=== PATIENT | male | born 1930 | race Native Hawaiian/Other Pacific Islander ===

== ENCOUNTER 2017-04-23 13:40 | Inpatient (IN) | payer OTHER ==
[~2017-04-23] VITALS: Ht 181.6 cm; Wt 61.0 kg
[2017-04-23 15:17] LABS: Basophils # (auto) 0.2 uL; Basophils % (auto) 1.2 % (0.0-2.0); Eosinophils # (auto) 0.4 uL; Eosinophils % (auto) 2.1 % (0.0-7.0); Hematocrit 25.8 % (41.0-53.0); Hemoglobin 8.7 g/dL (13.5-17.5); Lymphocytes # (auto) 2.5 uL; Lymphocytes % (auto) 12.8 % (10.0-50.0); Mean Corpuscular Hemoglobin 30.8 pg (28.0-32.0); Mean Corpuscular Hgb Conc. 33.6 g/dL (32.0-36.0); Mean Corpuscular Volume 91.8 fL (80.0-100.0); Mean Platelet Volume 7.8 fL (6.9-10.8); Monocytes # (auto) 1.5 uL; Monocytes % (auto) 7.3 % (0.0-12.0); Neutrophils # (auto) 15.2 uL; Neutrophils % (auto) 76.6 % (37.0-80.0); Nucleated Red Blood Cells % 0.5 %; Platelet Count (auto) 244 10^3/uL (140-450); Red Cell Distribution Width 16.2 % (11.8-14.3); White Blood Cell 19.8 10^3/uL (4.4-10.8)
[2017-04-23] MEDS ORDERED: SODIUM CHLORIDE 0.9% 1,000 ML IV ONE (15:24)
[2017-04-23 15:37] LABS: Albumin 1.7 g/dL (3.4-5.0); Bilirubin, Total 0.5 mg/dL (0.2-1.0); Calcium 7.2 mg/dL (8.5-10.1); Magnesium 2.1 mg/dL (1.6-2.6); Potassium 3.2 mmol/L (3.5-5.1); Total Protein 5.6 g/dL (6.4-8.2)
[2017-04-23 15:52] LABS: INR 1.05 (0.9-1.15); Prothrombin Time 11.4 sec (9.37-12.3)
[2017-04-23 16:19] LABS: Urine RBC None Seen /hpf (0 - 3)
[2017-04-23 16:32] LABS: Urine Bilirubin Negative (Negative); Urine Blood Negative /uL (Negative); Urine Color Yellow (Yellow); Urine Glucose 4+ mg/dL (Normal); Urine Ketone Negative (Negative); Urine Nitrite Negative (Negative); Urine Squamous Epithelial Cell FEW /hpf (<5); Urine Urobilinogen Normal (Negative)
[2017-04-23] MEDS ORDERED: POTASSIUM CHL 10% (20 MEQ/15ML) 15ml ORAL SOLN PO ONE (17:30)
[2017-04-23] MEDS ORDERED: PIPERACILLIN-TAZO 4.5GM 50 ML IV ONE (17:30)
[2017-04-23] MEDS ORDERED: InsuLIN REG 1unit/0.01ml Soln (100units/ml) IV ONE (17:30)
[2017-04-23] MEDS ORDERED: LIDOCAINE 1% HCL (LOCAL ANESTH.) INJ 20ML MDV ID ONE (18:15)
[2017-04-23] MEDS ORDERED: CARB25TA3 PO (18:31)
[2017-04-23] MEDS ORDERED: BUDE2SUS3 IN (18:31)
[2017-04-23] MEDS ORDERED: CARBIDOPA W LEVODOPA 25/100mg TABLET PO ONE (21:15)
[2017-04-23] MEDS ORDERED: ONDANSETRON HCL 4 MG/2 ML VIAL IV PRN (22:00)
[2017-04-23] MEDS ORDERED: ALBUMIN 5% 250 ML IV ONE (22:00)
[2017-04-23] MEDS ORDERED: MORPHINE SULF INJ 2 MG/ML SYRINGE 1ML IV PRN (22:00)
[2017-04-23] MEDS ORDERED: HYDROcodone-ACET 5/325MG TAB PO PRN (22:00)
[2017-04-23] MEDS ORDERED: NITROGLYCERIN 0.4 MG SL TAB SL PRN (22:00)
[2017-04-23] MEDS ORDERED: VANCOMYCIN PER PHARMACY 0 MG IV SCH (22:00)
[2017-04-23] MEDS ORDERED: DEXTROSE (50%) 50ML SYRG IV PRN (22:00)
[2017-04-23] MEDS ORDERED: VANCOMYCIN 1GM/250ML 250 ML IV ONE (22:15)
[2017-04-23] MEDS: PANTOPRAZOLE 40 MG/10 ML VIAL IV SCH (23:03)
[2017-04-23 23:07] LABS: Hematocrit 23.6 % (41.0-53.0); Hemoglobin 7.9 g/dL (13.5-17.5)
[2017-04-24] VITALS (10 sets, daily range): BP systolic 95–113; BP diastolic 51–66
[2017-04-24] MEDS ORDERED: PIPERACILLIN-TAZOB 3.375GM 50 ML IV SCH
[2017-04-24] MEDS: ACCU-CHEK COMFORT CURVE STRIP VI SCH ×4 (01:18→17:29)
[2017-04-24] MEDS: SODIUM CHLOR 0.9% PF (SALINE LOCK) 10ML VIAL IV SCH ×3 (01:19→21:52)
[2017-04-24] MEDS: InsuLIN REG 1unit/0.01ml Soln (100units/ml) SC SCH ×4 (01:22→17:28)
[2017-04-24] MEDS: SODIUM CHLORIDE 0.9% 1,000 ML IV SCH ×2 (02:13→11:23)
[2017-04-24] MEDS: CARBIDOPA W LEVODOPA 25/100mg TABLET PO SCH ×3 (06:00→17:32)
[2017-04-24] MEDS: PIPERACILLIN-TAZOB 3.375GM 50 ML IV SCH ×3 (07:53→20:04)
[2017-04-24] MEDS: PANTOPRAZOLE 40 MG/10 ML VIAL IV SCH ×2 (09:47→21:51)
[2017-04-24 09:50] LABS: Hematocrit 27.2 % (41.0-53.0); Hemoglobin 9.1 g/dL (13.5-17.5); Mean Corpuscular Hemoglobin 30.2 pg (28.0-32.0); Mean Corpuscular Hgb Conc. 33.6 g/dL (32.0-36.0); Mean Corpuscular Volume 89.9 fL (80.0-100.0); Mean Platelet Volume 7.5 fL (6.9-10.8); Platelet Count (auto) 207 10^3/uL (140-450); Red Cell Distribution Width 15.1 % (11.8-14.3)
[2017-04-24 10:01] LABS: Metamyelocytes % 0; Myelocytes % 0; Promyelocytes % 0; Reactive Lymphocytes 0
[2017-04-24 10:14] LABS: Albumin 1.8 g/dL (3.4-5.0); BUN/Creatinine Ratio 23.3; Bilirubin, Total 0.8 mg/dL (0.2-1.0); Calcium 7.3 mg/dL (8.5-10.1); Potassium 3.1 mmol/L (3.5-5.1); Total Protein 5.4 g/dL (6.4-8.2)
[2017-04-24 10:50] LABS: Platelet Estimate Adequate; RBC Morphology Normal
[2017-04-24] MEDS ORDERED: POTASSIUM CHL 20MEQ/50ML 50 ML IV ONE (17:30)
[2017-04-24] MEDS ORDERED: LISI-275 PO (23:10)
[2017-04-25] MEDS: VANCOMYCIN 1GM/250ML 250 ML IV SCH (00:07)
[2017-04-25] MEDS: ACCU-CHEK COMFORT CURVE STRIP VI SCH ×4 (00:09→18:15)
[2017-04-25] MEDS: CARBIDOPA W LEVODOPA 25/100mg TABLET PO SCH ×4 (00:14→18:10)
[2017-04-25] MEDS: InsuLIN REG 1unit/0.01ml Soln (100units/ml) SC SCH ×4 (00:14→18:15)
[2017-04-25] MEDS: SODIUM CHLORIDE 0.9% 1,000 ML IV SCH ×2 (00:40→14:10)
[2017-04-25] MEDS: PIPERACILLIN-TAZOB 3.375GM 50 ML IV SCH ×4 (02:09→21:36)
[2017-04-25 05:00] VITALS: BP 121/69
[2017-04-25 06:11] LABS: Hematocrit 24.5 % (41.0-53.0); Hemoglobin 8.4 g/dL (13.5-17.5); Mean Platelet Volume 7.4 fL (6.9-10.8); Platelet Count (auto) 192 10^3/uL (140-450); Red Cell Distribution Width 15.5 % (11.8-14.3); White Blood Cell 15.3 10^3/uL (4.4-10.8)
[2017-04-25 06:15] LABS: Metamyelocytes % 0; Myelocytes % 0; Promyelocytes % 0; Reactive Lymphocytes 0
[2017-04-25 06:32] LABS: Albumin 1.6 g/dL (3.4-5.0); BUN/Creatinine Ratio 22.1; Bilirubin, Total 0.7 mg/dL (0.2-1.0); Calcium 7.1 mg/dL (8.5-10.1); Potassium 3.2 mmol/L (3.5-5.1); Total Protein 5.1 g/dL (6.4-8.2)
[2017-04-25 06:54] LABS: Anisocytosis Slight; Hypersegmented Neutrophils Present
[2017-04-25 06:55] LABS: Large Platelets FEW; Ovalocytes FEW; Platelet Estimate Adequa
[2017-04-25 08:53] VITALS: BP 123/57
[2017-04-25] MEDS: PANTOPRAZOLE 40 MG/10 ML VIAL IV SCH ×2 (10:00→21:36)
[2017-04-25] MEDS: SODIUM CHLOR 0.9% PF (SALINE LOCK) 10ML VIAL IV SCH ×2 (10:14→21:36)
[2017-04-25 13:07] VITALS: BP 110/54
[2017-04-25] MEDS: D5W/SOD CHL 0.45%/KCL 20MEQ 1,000 ML IV SCH (16:54)
[2017-04-25 17:46] VITALS: BP 101/56
[2017-04-25 22:43] VITALS: BP 112/55
[2017-04-26] MEDS: CARBIDOPA W LEVODOPA 25/100mg TABLET PO SCH ×3 (00:12→15:00)
[2017-04-26] MEDS: VANCOMYCIN 1GM/250ML 250 ML IV SCH (00:13)
[2017-04-26] MEDS: ACCU-CHEK COMFORT CURVE STRIP VI SCH ×4 (00:13→18:16)
[2017-04-26 05:07] VITALS: BP 127/69
[2017-04-26] MEDS: D5W/SOD CHL 0.45%/KCL 20MEQ 1,000 ML IV SCH ×2 (05:13→17:10)
[2017-04-26] MEDS: PIPERACILLIN-TAZOB 3.375GM 50 ML IV SCH ×5 (05:13→17:07)
[2017-04-26 05:24] LABS: Basophils # (auto) 0.1 uL; Eosinophils # (auto) 0.4 uL; Monocytes # (auto) 1.2 uL
[2017-04-26 05:26] LABS: Basophils % (auto) 0.5 % (0.0-2.0); Eosinophils % (auto) 2.4 % (0.0-7.0); Hematocrit 22.6 % (41.0-53.0); Hemoglobin 7.6 g/dL (13.5-17.5); Lymphocytes # (auto) 2.5 uL; Mean Corpuscular Hgb Conc. 33.7 g/dL (32.0-36.0); Mean Platelet Volume 7.5 fL (6.9-10.8); Monocytes % (auto) 7.1 % (0.0-12.0); Neutrophils # (auto) 12.6 uL; Nucleated Red Blood Cells % 0.2 %; Platelet Count (auto) 199 10^3/uL (140-450); White Blood Cell 16.8 10^3/uL (4.4-10.8)
[2017-04-26 05:55] LABS: Albumin 1.5 g/dL (3.4-5.0); BUN/Creatinine Ratio 21.2; Bilirubin, Total 0.6 mg/dL (0.2-1.0); Calcium 7.3 mg/dL (8.5-10.1); Potassium 3.4 mmol/L (3.5-5.1); Total Protein 4.9 g/dL (6.4-8.2)
[2017-04-26] MEDS: InsuLIN REG 1unit/0.01ml Soln (100units/ml) SC SCH ×4 (05:59→18:16)
[2017-04-26] MEDS ORDERED: LIDOCAINE VISCOUS 2% 15ML UD ONE (08:33)
[2017-04-26] MEDS ORDERED: SODIUM CHLORIDE LOCK 10 ML ONE (08:33)
[2017-04-26] MEDS ORDERED: fentaNYL CITRATE 100 MCG/2 ML VL ONE (08:33)
[2017-04-26] MEDS ORDERED: MIDAZOLAM HCL 5 MG/ML-1ML VIAL ONE (08:34)
[2017-04-26] MEDS ORDERED: diphenhdrAMINE HCL 50 MG/1 ML VL ONE (08:34)
[2017-04-26 08:53] VITALS: BP 117/61
[2017-04-26] MEDS: SODIUM CHLOR 0.9% PF (SALINE LOCK) 10ML VIAL IV SCH ×2 (10:00→22:36)
[2017-04-26 10:45] VITALS: BP 106/51
[2017-04-26] MEDS: PANTOPRAZOLE 40 MG/10 ML VIAL IV SCH ×2 (15:00→22:35)
[2017-04-26 17:00] VITALS: BP 111/65
[2017-04-26 17:51] LABS: Hematocrit 24.3 % (41.0-53.0)
[2017-04-26 17:58] LABS: Hemoglobin 8.2 g/dL (13.5-17.5)
[2017-04-26 23:07] VITALS: BP 113/54
[2017-04-27] VITALS (12 sets, daily range): BP systolic 99–127; BP diastolic 38–91
[2017-04-27] MEDS ORDERED: VANCOMYCIN 1GM/250ML 250 ML IV ONE (00:30)
[2017-04-27] MEDS: VANCOMYCIN 1GM/250ML 250 ML IV SCH (00:38)
[2017-04-27] MEDS: ACCU-CHEK COMFORT CURVE STRIP VI SCH ×3 (06:00→18:00)
[2017-04-27] MEDS: InsuLIN REG 1unit/0.01ml Soln (100units/ml) SC SCH ×5 (06:00→18:00)
[2017-04-27] MEDS: CARBIDOPA W LEVODOPA 25/100mg TABLET PO SCH ×4 (06:00→17:36)
[2017-04-27] MEDS: D5W/SOD CHL 0.45%/KCL 20MEQ 1,000 ML IV SCH ×2 (06:30→14:30)
[2017-04-27 06:32] LABS: Basophils # (auto) 0.1 uL; Eosinophils # (auto) 0.3 uL; Hemoglobin 7.1 g/dL (13.5-17.5); Lymphocytes % (auto) 19.4 % (10.0-50.0); Nucleated Red Blood Cells % 0.1 %; Platelet Count (auto) 174 10^3/uL (140-450)
[2017-04-27 06:34] LABS: Basophils % (auto) 0.7 % (0.0-2.0); Eosinophils % (auto) 2.2 % (0.0-7.0); Lymphocytes # (auto) 2.6 uL; Mean Corpuscular Hemoglobin 31.4 pg (28.0-32.0); Mean Corpuscular Hgb Conc. 33.7 g/dL (32.0-36.0); Mean Corpuscular Volume 93.2 fL (80.0-100.0); Monocytes # (auto) 0.8 uL; Monocytes % (auto) 5.8 % (0.0-12.0); Neutrophils # (auto) 9.5 uL; Neutrophils % (auto) 71.9 % (37.0-80.0); Red Cell Distribution Width 15.6 % (11.8-14.3); White Blood Cell 13.2 10^3/uL (4.4-10.8)
[2017-04-27 06:44] LABS: Potassium 3.5 mmol/L (3.5-5.1)
[2017-04-27 06:52] LABS: BUN/Creatinine Ratio 26.7; Calcium 7.2 mg/dL (8.5-10.1)
[2017-04-27] MEDS: PIPERACILLIN-TAZOB 3.375GM 50 ML IV SCH ×3 (08:00→22:44)
[2017-04-27] MEDS: SODIUM CHLOR 0.9% PF (SALINE LOCK) 10ML VIAL IV SCH ×2 (10:00→22:00)
[2017-04-27] MEDS: PANTOPRAZOLE 40 MG/10 ML VIAL IV SCH ×2 (10:35→22:44)
[2017-04-27] MEDS ORDERED: DEXTROSE (50%) 50ML SYRG IV PRN (12:15)
[2017-04-27] MEDS ORDERED: FUROSEMIDE 20 MG/2 ML VIAL IV ONE (12:15)
[2017-04-27] MEDS ORDERED: GOLYTELY 4L KIT PO ONE (14:00)
[2017-04-27] MEDS ORDERED: VANCOMYCIN 1GM/250ML 250 ML IV SCH (17:00)
[2017-04-27] MEDS: ACETAMINOPHEN 325 MG TAB PO PRN (21:28)
[2017-04-27] MEDS ORDERED: LORazepam 2MG/ML-1ML VIAL IV PRN (21:45)
[2017-04-27] MEDS ORDERED: ACETAMINOPHEN 650 mg PER 20 mL UD GT PRN (21:45)
[2017-04-27] MEDS ORDERED: SODIUM CHLORIDE 0.9% 500 ML IV ONE (23:00)
[2017-04-27 23:39] LABS: Allen Test Yes; Base Excess -5.5 mmol/L (-2.0-2.0); Blood 02Sat 98.5 % (96-100); Blood COHb 0.3 % (0.5-1.5); Blood MetHb 0.3 % (0.0-1.5); HCO3 17.1 mmol/L (22-26.0); HHb 1.5 % (0.0-5.0); MODE MASK - BIPAP; O2Hb 97.9 % (94.0-97.0); PCO2 24.5 mmHg (35.0-45.0); PCO2(T) 25.6 mmHg (35.0-45.0); PO2 178.6 mmHg (80.0-100.0); PO2(T) 184.1 mmHg (80.0-100.0); Room 0275T; Sample Type Arterial; pH 7.462 (7.350-7.450)
[2017-04-28] VITALS (14 sets, daily range): BP systolic 95–143; BP diastolic 38–84
[2017-04-28 00:10] LABS: Allen Test Yes; Base Excess -5.5 mmol/L (-2.0-2.0); Blood 02Sat 98.2 % (96-100); Blood COHb 0.3 % (0.5-1.5); Blood MetHb 0.7 % (0.0-1.5); HCO3 17.9 mmol/L (22-26.0); HHb 1.8 % (0.0-5.0); MODE MASK - BIPAP; O2Hb 97.2 % (94.0-97.0); PCO2 27.6 mmHg (35.0-45.0); PCO2(T) 27.6 mmHg (35.0-45.0); PO2 149.9 mmHg (80.0-100.0); PO2(T) 149.9 mmHg (80.0-100.0); Room 0262D; Sample Type Arterial
[2017-04-28] MEDS: ACCU-CHEK COMFORT CURVE STRIP VI SCH ×4 (00:38→17:27)
[2017-04-28] MEDS: InsuLIN REG 1unit/0.01ml Soln (100units/ml) SC SCH ×4 (01:09→18:17)
[2017-04-28] MEDS: PIPERACILLIN-TAZOB 3.375GM 50 ML IV SCH ×4 (02:27→21:22)
[2017-04-28] MEDS: ACETAMINOPHEN 325 MG TAB PO PRN (03:06)
[2017-04-28 05:20] LABS: Basophils # (auto) 0.1 uL; Basophils % (auto) 0.3 % (0.0-2.0); Eosinophils # (auto) 0 uL; Hemoglobin 7.6 g/dL (13.5-17.5); Monocytes # (auto) 0.7 uL; Neutrophils # (auto) 21.8 uL
[2017-04-28 05:22] LABS: Hematocrit 22.7 % (41.0-53.0); Lymphocytes # (auto) 1.7 uL; Lymphocytes % (auto) 7.1 % (10.0-50.0); Mean Corpuscular Hemoglobin 31.3 pg (28.0-32.0); Mean Corpuscular Hgb Conc. 33.4 g/dL (32.0-36.0); Mean Corpuscular Volume 93.7 fL (80.0-100.0); Mean Platelet Volume 8.2 fL (6.9-10.8); Monocytes % (auto) 2.8 % (0.0-12.0); Neutrophils % (auto) 89.8 % (37.0-80.0); Platelet Count (auto) 187 10^3/uL (140-450); Red Cell Distribution Width 15.8 % (11.8-14.3); White Blood Cell 24.3 10^3/uL (4.4-10.8)
[2017-04-28 05:29] LABS: INR 1.37 (0.9-1.15); Partial Thromboplastin Time 31.3 sec (22.64-33.71)
[2017-04-28] MEDS: D5W/SOD CHL 0.45%/KCL 20MEQ 1,000 ML IV SCH ×2 (05:32→21:22)
[2017-04-28 05:43] LABS: BUN/Creatinine Ratio 19.4; Potassium 3.3 mmol/L (3.5-5.1)
[2017-04-28] MEDS: CARBIDOPA W LEVODOPA 25/100mg TABLET PO SCH ×4 (06:20→17:30)
[2017-04-28] MEDS ORDERED: FLUMAZENIL 0.1 MG/ML INJ 10ML MDV IV ONE (08:27)
[2017-04-28] MEDS ORDERED: SODIUM CHLORIDE LOCK 10 ML ONE (08:27)
[2017-04-28] MEDS ORDERED: fentaNYL CITRATE 100 MCG/2 ML VL ONE (08:27)
[2017-04-28] MEDS ORDERED: NALOXONE HCL 0.4 MG/ML VIAL ONE (08:27)
[2017-04-28] MEDS ORDERED: diphenhdrAMINE HCL 50 MG/1 ML VL ONE (08:28)
[2017-04-28] MEDS ORDERED: MIDAZOLAM HCL 5 MG/ML-1ML VIAL ONE (08:28)
[2017-04-28] MEDS: LINEZOLID 600MG/300ML 300 ML IV SCH ×2 (10:20→22:00)
[2017-04-28] MEDS: PANTOPRAZOLE 40 MG/10 ML VIAL IV SCH ×2 (10:20→21:29)
[2017-04-28] MEDS: SODIUM CHLOR 0.9% PF (SALINE LOCK) 10ML VIAL IV SCH ×2 (10:20→21:22)
[2017-04-28] MEDS ORDERED: SODIUM CHLORIDE 0.9% 1,000 ML IV ONE (20:00)
[2017-04-29] VITALS (48 sets, daily range): BP systolic 62–134; BP diastolic 23–98
[2017-04-29] MEDS: ACCU-CHEK COMFORT CURVE STRIP VI SCH ×4 (00:04→18:00)
[2017-04-29] MEDS: InsuLIN REG 1unit/0.01ml Soln (100units/ml) SC SCH ×4 (00:04→18:00)
[2017-04-29] MEDS: CARBIDOPA W LEVODOPA 25/100mg TABLET PO SCH ×4 (00:11→18:14)
[2017-04-29] MEDS: PIPERACILLIN-TAZOB 3.375GM 50 ML IV SCH ×4 (02:07→20:00)
[2017-04-29 02:37] LABS: Mean Platelet Volume 8.7 fL (6.9-10.8)
[2017-04-29 02:38] LABS: Mean Corpuscular Hemoglobin 30.9 pg (28.0-32.0); Mean Corpuscular Hgb Conc. 33.6 g/dL (32.0-36.0); Red Cell Distribution Width 14.9 % (11.8-14.3); White Blood Cell 24.9 10^3/uL (4.4-10.8)
[2017-04-29 02:42] LABS: Hematocrit 22.2 % (41.0-53.0); Hemoglobin 7.5 g/dL (13.5-17.5); Platelet Count (auto) 154 10^3/uL (140-450)
[2017-04-29 02:43] LABS: Metamyelocytes % 0; Myelocytes % 0; Promyelocytes % 0; Reactive Lymphocytes 0
[2017-04-29 02:48] LABS: BUN/Creatinine Ratio 19.1; Calcium 6.6 mg/dL (8.5-10.1); Potassium 3.8 mmol/L (3.5-5.1)
[2017-04-29 05:14] LABS: Platelet Estimate Adequate
[2017-04-29 05:15] LABS: Large Platelets FEW; Polychromasia Slight
[2017-04-29 08:46] LABS: Hemoglobin 7.9 g/dL (13.5-17.5)
[2017-04-29 09:04] LABS: Hematocrit 24.1 % (41.0-53.0)
[2017-04-29] MEDS: PANTOPRAZOLE 40 MG/10 ML VIAL IV SCH ×2 (10:34→22:00)
[2017-04-29] MEDS: SODIUM CHLOR 0.9% PF (SALINE LOCK) 10ML VIAL IV SCH ×2 (10:35→22:00)
[2017-04-29] MEDS: LINEZOLID 600MG/300ML 300 ML IV SCH ×2 (10:35→22:00)
[2017-04-29] MEDS ORDERED: TPN PER PHARMACY 0 ML IV SCH (11:30)
[2017-04-29] MEDS ORDERED: FLUCONAZOLE 200MG/100ML 100 ML IV ONE (11:30)
[2017-04-29 11:55] LABS: Albumin 1.1 g/dL (3.4-5.0); Alkaline Phosphatase 44 U/L (45-117); Aspartate Aminotransferase 29 U/L (15-37); Bilirubin, Direct 0.3 mg/dL (0-0.2); Bilirubin, Total 0.6 mg/dL (0.2-1.0); Magnesium 1.8 mg/dL (1.6-2.6); Phosphorus 2.7 mg/dL (2.5-4.90); Total Protein 3.9 g/dL (6.4-8.2); Triglycerides 57 mg/dL (< 150)
[2017-04-29] MEDS ORDERED: FUROSEMIDE 40 MG/4 ML VIAL ONE (13:07)
[2017-04-29] MEDS ORDERED: FUROSEMIDE 40 MG/4 ML VIAL IV ONE ×3 (13:15→20:45)
[2017-04-29] MEDS ORDERED: GOLYTELY 4L KIT PO ONE (14:00)
[2017-04-29 17:10] LABS: Magnesium 1.7 mg/dL (1.6-2.6); Phosphorus 3.8 mg/dL (2.5-4.90)
[2017-04-29] MEDS ORDERED: TPN PER PHARMACY IV NR ×9 (20:00)
[2017-04-29 20:19] LABS: Basophils # (auto) 0.1 uL; Basophils % (auto) 0.4 % (0.0-2.0); Eosinophils # (auto) 0 uL; Eosinophils % (auto) 0.1 % (0.0-7.0); Hematocrit 30.7 % (41.0-53.0); Hemoglobin 10.1 g/dL (13.5-17.5); Lymphocytes # (auto) 1.2 uL; Lymphocytes % (auto) 4.8 % (10.0-50.0); Mean Corpuscular Hemoglobin 31.2 pg (28.0-32.0); Mean Corpuscular Hgb Conc. 32.9 g/dL (32.0-36.0); Mean Platelet Volume 9.2 fL (6.9-10.8); Neutrophils # (auto) 22.7 uL; Neutrophils % (auto) 90.7 % (37.0-80.0); Nucleated Red Blood Cells % 0.3 %; Platelet Count (auto) 198 10^3/uL (140-450); Red Cell Distribution Width 15.3 % (11.8-14.3); White Blood Cell 25.1 10^3/uL (4.4-10.8)
[2017-04-29] MEDS: NOREPINEPHRINE 8 MG/250ML KIT 250 ML IV SCH (20:20)
[2017-04-29 20:37] LABS: Calcium 6.5 mg/dL (8.5-10.1); Potassium 3.5 mmol/L (3.5-5.1)
[2017-04-29 21:12] LABS: Blood 02Sat 94.4 % (96-100); Blood COHb 0.3 % (0.5-1.5); Blood MetHb 0.3 % (0.0-1.5); HCO3 15.3 mmol/L (22-26.0); HHb 5.6 % (0.0-5.0); MODE MASK - BIPAP; O2Hb 93.8 % (94.0-97.0); PCO2 31.8 mmHg (35.0-45.0); PCO2(T) 31.8 mmHg (35.0-45.0); PIP 12; PO2 85.5 mmHg (80.0-100.0); PO2(T) 85.5 mmHg (80.0-100.0); Room 0262D; Sample Type Arterial; pH 7.299 (7.350-7.450)
[2017-04-29] MEDS ORDERED: SODIUM BICARBONATE 8.4 % INJ 50ML VIAL IV ONE (22:30)
[2017-04-29] MEDS ORDERED: SODIUM BICARBONATE 8.4% INJ 50ML SYRINGE ONE ×2 (22:31→23:13)
[2017-04-29 23:14] LABS: Base Excess -6.2 mmol/L (-2.0-2.0); Blood 02Sat 95.1 % (96-100); Blood COHb 0.2 % (0.5-1.5); Blood MetHb 0.4 % (0.0-1.5); HCO3 18.5 mmol/L (22-26.0); HHb 4.9 % (0.0-5.0); MODE MASK - BIPAP; O2Hb 94.5 % (94.0-97.0); PCO2 33.6 mmHg (35.0-45.0); PCO2(T) 33.6 mmHg (35.0-45.0); PIP 16; Room 0262D; Sample Type Arterial; pH 7.359 (7.350-7.450)
[2017-04-30] VITALS (99 sets, daily range): BP systolic 81–153; BP diastolic 37–104
[2017-04-30] MEDS: PIPERACILLIN-TAZOB 3.375GM 50 ML IV SCH ×4 (02:00→20:00)
[2017-04-30 04:31] LABS: Mean Platelet Volume 8.6 fL (6.9-10.8)
[2017-04-30 04:34] LABS: Hemoglobin 10.5 g/dL (13.5-17.5); Mean Corpuscular Hemoglobin 31.7 pg (28.0-32.0); Mean Corpuscular Hgb Conc. 33.7 g/dL (32.0-36.0); Platelet Count (auto) 245 10^3/uL (140-450); Red Cell Distribution Width 15.5 % (11.8-14.3)
[2017-04-30 04:54] LABS: White Blood Cell 31.5 10^3/uL (4.4-10.8)
[2017-04-30 04:55] LABS: Metamyelocytes % 0; Myelocytes % 0; Promyelocytes % 0; Reactive Lymphocytes 0
[2017-04-30 04:58] LABS: Albumin 1.2 g/dL (3.4-5.0); Alkaline Phosphatase 67 U/L (45-117); Anion Gap 12 (5-15); Aspartate Aminotransferase 25 U/L (15-37); BUN/Creatinine Ratio 14.9; Bilirubin, Total 0.5 mg/dL (0.2-1.0); Blood Urea Nitrogen 43 mg/dL (7-18); Calcium 6.7 mg/dL (8.5-10.1); Carbon Dioxide 22 mmol/L (21-32); Chloride 115 mmol/L (98-107); GFR African American 27 mL/min; GFR Non-African American 22 mL/min; Glucose 217 mg/dL (74-106); Magnesium 1.9 mg/dL (1.6-2.6); Phosphorus 5.1 mg/dL (2.5-4.90); Potassium 3.9 mmol/L (3.5-5.1); Sodium 149 mmol/L (136-145); Total Protein 4.9 g/dL (6.4-8.2)
[2017-04-30] MEDS: CARBIDOPA W LEVODOPA 25/100mg TABLET PO SCH ×4 (06:00→18:23)
[2017-04-30] MEDS: InsuLIN REG 1unit/0.01ml Soln (100units/ml) SC SCH ×4 (06:00→18:23)
[2017-04-30] MEDS: ACCU-CHEK COMFORT CURVE STRIP VI SCH ×4 (06:00→18:23)
[2017-04-30 06:18] LABS: Burr Cells FEW; Platelet Estimate Adequate; Polychromasia Slight
[2017-04-30 07:27] LABS: Allen Test Modified; Base Excess -7.2 mmol/L (-2.0-2.0); Blood 02Sat 97.1 % (96-100); Blood COHb 0.2 % (0.5-1.5); Blood MetHb 0.4 % (0.0-1.5); HCO3 19.8 mmol/L (22-26.0); HHb 2.9 % (0.0-5.0); MODE MASK - BIPAP; O2Hb 96.5 % (94.0-97.0); PCO2 46.4 mmHg (35.0-45.0); PCO2(T) 46.4 mmHg (35.0-45.0); PIP 16; PO2 122.1 mmHg (80.0-100.0); PO2(T) 122.1 mmHg (80.0-100.0); Pressure Support 8; Room 0262D; Sample Type Arterial; pH 7.248 (7.350-7.450)
[2017-04-30] MEDS: FLUCONAZOLE 200MG/100ML 100 ML IV SCH (09:39)
[2017-04-30] MEDS: PANTOPRAZOLE 40 MG/10 ML VIAL IV SCH ×2 (09:39→22:00)
[2017-04-30] MEDS: SODIUM CHLOR 0.9% PF (SALINE LOCK) 10ML VIAL IV SCH ×2 (09:44→22:00)
[2017-04-30] MEDS ORDERED: FUROSEMIDE 40 MG/4 ML VIAL IV ONE (10:45)
[2017-04-30] MEDS: LINEZOLID 600MG/300ML 300 ML IV SCH ×2 (10:48→22:00)
[2017-04-30 13:29] LABS: Allen Test Modified; Base Excess -3.6 mmol/L (-2.0-2.0); Blood 02Sat 91.4 % (96-100); Blood COHb 0.3 % (0.5-1.5); Blood MetHb 0.3 % (0.0-1.5); HCO3 21.3 mmol/L (22-26.0); HHb 8.5 % (0.0-5.0); MODE MASK - BIPAP; O2Hb 90.9 % (94.0-97.0); PCO2 37.7 mmHg (35.0-45.0); PCO2(T) 37.7 mmHg (35.0-45.0); PIP 20; PO2 61.2 mmHg (80.0-100.0); PO2(T) 61.2 mmHg (80.0-100.0); Pressure Support 12; Room 0262D; Sample Type Arterial
[2017-04-30] MEDS: NOREPINEPHRINE 8 MG/250ML KIT 250 ML IV SCH (17:42)
[2017-04-30] MEDS ORDERED: POTASSIUM ACETATE IV NR ×9 (20:00)
[2017-04-30] MEDS ORDERED: FAT EMULSION IV NR ×9 (20:00)
[2017-04-30] MEDS ORDERED: CALCIUM GLUC IV NR ×9 (20:00)
[2017-04-30] MEDS ORDERED: [UNRECOGNIZED DRUG - OTHER] IV NR ×9 (20:00)
[2017-05-01] VITALS (104 sets, daily range): BP systolic 64–149; BP diastolic 27–90
[2017-05-01] MEDS: ACCU-CHEK COMFORT CURVE STRIP VI SCH ×4 (00:27→18:29)
[2017-05-01] MEDS: InsuLIN REG 1unit/0.01ml Soln (100units/ml) SC SCH ×4 (00:27→18:29)
[2017-05-01] MEDS: PIPERACILLIN-TAZOB 3.375GM 50 ML IV SCH ×2 (02:00→08:10)
[2017-05-01 04:41] LABS: Albumin 1.1 g/dL (3.4-5.0); Alkaline Phosphatase 90 U/L (45-117); Anion Gap 12 (5-15); Aspartate Aminotransferase 20 U/L (15-37); BUN/Creatinine Ratio 15.8; Bilirubin, Total 0.4 mg/dL (0.2-1.0); Blood Urea Nitrogen 48 mg/dL (7-18); Calcium 6.9 mg/dL (8.5-10.1); Carbon Dioxide 23 mmol/L (21-32); Chloride 114 mmol/L (98-107); GFR African American 25 mL/min; GFR Non-African American 21 mL/min; Glucose 166 mg/dL (74-106); Magnesium 2.2 mg/dL (1.6-2.6); Phosphorus 3.8 mg/dL (2.5-4.90); Potassium 3.4 mmol/L (3.5-5.1); Sodium 149 mmol/L (136-145); Total Protein 5.1 g/dL (6.4-8.2)
[2017-05-01] MEDS: NOREPINEPHRINE 8 MG/250ML KIT 250 ML IV SCH ×2 (06:00→23:45)
[2017-05-01] MEDS: CARBIDOPA W LEVODOPA 25/100mg TABLET PO SCH ×4 (06:00→18:28)
[2017-05-01 07:46] LABS: Basophils # (auto) 0.1 uL; Basophils % (auto) 0.3 % (0.0-2.0); Eosinophils # (auto) 0 uL; Eosinophils % (auto) 0.1 % (0.0-7.0); Hematocrit 29.5 % (41.0-53.0); Hemoglobin 9.8 g/dL (13.5-17.5); Lymphocytes # (auto) 0.9 uL; Lymphocytes % (auto) 3.2 % (10.0-50.0); Mean Corpuscular Hemoglobin 31.3 pg (28.0-32.0); Mean Corpuscular Hgb Conc. 33.3 g/dL (32.0-36.0); Mean Platelet Volume 8.4 fL (6.9-10.8); Monocytes # (auto) 0.6 uL; Monocytes % (auto) 2.3 % (0.0-12.0); Neutrophils # (auto) 25.4 uL; Neutrophils % (auto) 94.1 % (37.0-80.0); Nucleated Red Blood Cells % 0.2 %; Platelet Count (auto) 246 10^3/uL (140-450); Red Cell Distribution Width 15.9 % (11.8-14.3)
[2017-05-01] MEDS ORDERED: ETOMIDATE (2MG/ML) 20ML VIAL IV ONE (09:46)
[2017-05-01] MEDS ORDERED: SUCCINYLCHOLINE CHLORIDE 20 MG/ML 10ML VIAL IV ONE (09:47)
[2017-05-01] MEDS: LINEZOLID 600MG/300ML 300 ML IV SCH ×2 (10:00→22:00)
[2017-05-01] MEDS: PANTOPRAZOLE 40 MG/10 ML VIAL IV SCH ×2 (10:11→22:00)
[2017-05-01] MEDS: SODIUM CHLOR 0.9% PF (SALINE LOCK) 10ML VIAL IV SCH ×2 (10:11→22:00)
[2017-05-01] MEDS: FLUCONAZOLE 200MG/100ML 100 ML IV SCH (10:11)
[2017-05-01] MEDS ORDERED: MIDAZOLAM DRIP 50 mg/50mL 50 ML IV ONE (10:37)
[2017-05-01] MEDS ORDERED: SODIUM CHL 0.9% IV ONE (10:45)
[2017-05-01] MEDS ORDERED: POTASSIUM ACETATE IV ONE (10:45)
[2017-05-01 11:32] LABS: Allen Test Yes; Base Excess -4.2 mmol/L (-2.0-2.0); Blood 02Sat 91.3 % (96-100); Blood COHb 0.3 % (0.5-1.5); Blood MetHb 0.5 % (0.0-1.5); HCO3 21.1 mmol/L (22-26.0); HHb 8.6 % (0.0-5.0); MODE VENT - A/C; O2Hb 90.6 % (94.0-97.0); PCO2 39.9 mmHg (35.0-45.0); PCO2(T) 39.9 mmHg (35.0-45.0); Sample Type Arterial; pH 7.342 (7.350-7.450)
[2017-05-01] MEDS: MIDAZOLAM DRIP 50 mg/50mL 50 ML IV SCH ×2 (12:03→22:30)
[2017-05-01 13:19] LABS: Allen Test Yes; Base Excess -3.9 mmol/L (-2.0-2.0); Blood 02Sat 93.7 % (96-100); Blood COHb 0.3 % (0.5-1.5); Blood MetHb 0.3 % (0.0-1.5); HCO3 21.6 mmol/L (22-26.0); HHb 6.3 % (0.0-5.0); MODE VENT - A/C; O2Hb 93.1 % (94.0-97.0); PCO2 40.6 mmHg (35.0-45.0); PCO2(T) 40.6 mmHg (35.0-45.0); PO2 75.5 mmHg (80.0-100.0); PO2(T) 75.5 mmHg (80.0-100.0); Sample Type Arterial; pH 7.343 (7.350-7.450)
[2017-05-01] MEDS: PIPERACILLIN-TAZOB 2.25GM 50 ML IV SCH ×2 (14:00→20:00)
[2017-05-01] MEDS: fentaNYL Drip 2500mCg/250mlNS 250 ML IV SCH (16:29)
[2017-05-01] MEDS ORDERED: TPN PER PHARMACY IV NR ×10 (20:00)
[2017-05-02] VITALS (101 sets, daily range): BP systolic 68–132; BP diastolic 30–82
[2017-05-02] MEDS: PIPERACILLIN-TAZOB 2.25GM 50 ML IV SCH ×4 (02:00→20:13)
[2017-05-02] MEDS: MIDAZOLAM DRIP 50 mg/50mL 50 ML IV SCH ×6 (02:00→21:44)
[2017-05-02 03:55] LABS: Basophils # (auto) 0.1 uL; Basophils % (auto) 0.3 % (0.0-2.0); Eosinophils # (auto) 0.1 uL; Eosinophils % (auto) 0.3 % (0.0-7.0); Hemoglobin 9.3 g/dL (13.5-17.5); Lymphocytes # (auto) 1.2 uL; Lymphocytes % (auto) 4.7 % (10.0-50.0); Mean Corpuscular Hemoglobin 31.5 pg (28.0-32.0); Mean Corpuscular Hgb Conc. 33.2 g/dL (32.0-36.0); Monocytes # (auto) 0.4 uL; Monocytes % (auto) 1.7 % (0.0-12.0); Neutrophils # (auto) 23.2 uL; Nucleated Red Blood Cells % 0.2 %; Platelet Count (auto) 248 10^3/uL (140-450)
[2017-05-02 04:21] LABS: Albumin 0.9 g/dL (3.4-5.0); Alkaline Phosphatase 81 U/L (45-117); Anion Gap 11 (5-15); Aspartate Aminotransferase 17 U/L (15-37); BUN/Creatinine Ratio 15.9; Bilirubin, Total 0.5 mg/dL (0.2-1.0); Blood Urea Nitrogen 49 mg/dL (7-18); Calcium 6.9 mg/dL (8.5-10.1); Carbon Dioxide 24 mmol/L (21-32); Chloride 110 mmol/L (98-107); GFR African American 25 mL/min; GFR Non-African American 21 mL/min; Glucose 178 mg/dL (74-106); Magnesium 2.2 mg/dL (1.6-2.6); Phosphorus 3.7 mg/dL (2.5-4.90); Potassium 3.8 mmol/L (3.5-5.1); Sodium 145 mmol/L (136-145); Total Protein 4.7 g/dL (6.4-8.2)
[2017-05-02] MEDS: ACCU-CHEK COMFORT CURVE STRIP VI SCH ×4 (06:00→17:30)
[2017-05-02] MEDS: CARBIDOPA W LEVODOPA 25/100mg TABLET PO SCH ×3 (06:00→11:46)
[2017-05-02] MEDS: InsuLIN REG 1unit/0.01ml Soln (100units/ml) SC SCH ×4 (06:00→17:30)
[2017-05-02] MEDS: NOREPINEPHRINE 8 MG/250ML KIT 250 ML IV SCH ×2 (08:31→17:03)
[2017-05-02] MEDS: FLUCONAZOLE 200MG/100ML 100 ML IV SCH (09:09)
[2017-05-02 09:25] LABS: Allen Test Yes; Base Excess -5.6 mmol/L (-2.0-2.0); Blood COHb 0.3 % (0.5-1.5); Blood MetHb 0.2 % (0.0-1.5); HCO3 20.7 mmol/L (22-26.0); MODE VENT - A/C; O2Hb 90.5 % (94.0-97.0); PCO2 44.3 mmHg (35.0-45.0); PCO2(T) 44.3 mmHg (35.0-45.0); PO2 68.2 mmHg (80.0-100.0); PO2(T) 68.2 mmHg (80.0-100.0); Sample Type Arterial; pH 7.288 (7.350-7.450)
[2017-05-02] MEDS: PANTOPRAZOLE 40 MG/10 ML VIAL IV SCH ×2 (09:52→21:44)
[2017-05-02] MEDS: SODIUM CHLOR 0.9% PF (SALINE LOCK) 10ML VIAL IV SCH ×2 (09:52→21:44)
[2017-05-02] MEDS: LINEZOLID 600MG/300ML 300 ML IV SCH ×2 (10:00→21:44)
[2017-05-02] MEDS ORDERED: HYDROcodone-ACET 5/325MG TAB PO PRN (14:45)
[2017-05-02] MEDS: fentaNYL Drip 2500mCg/250mlNS 250 ML IV SCH (17:02)
[2017-05-02] MEDS ORDERED: FAT EMULSION IV NR ×10 (20:00)
[2017-05-02] MEDS ORDERED: POTASSIUM PHOSPHATE IV NR ×10 (20:00)
[2017-05-02] MEDS ORDERED: POTASSIUM ACETATE IV NR ×10 (20:00)
[2017-05-02] MEDS ORDERED: [UNRECOGNIZED DRUG - OTHER] IV NR ×10 (20:00)
[2017-05-03] VITALS (93 sets, daily range): BP systolic 80–142; BP diastolic 33–70
[2017-05-03] MEDS: MIDAZOLAM DRIP 50 mg/50mL 50 ML IV SCH (01:06)
[2017-05-03] MEDS: NOREPINEPHRINE 8 MG/250ML KIT 250 ML IV SCH (01:07)
[2017-05-03] MEDS: PIPERACILLIN-TAZOB 2.25GM 50 ML IV SCH ×4 (01:46→22:37)
[2017-05-03 04:11] LABS: Basophils # (auto) 0.1 uL; Basophils % (auto) 0.3 % (0.0-2.0); Eosinophils # (auto) 0.6 uL; Hemoglobin 8.3 g/dL (13.5-17.5); Lymphocytes # (auto) 1.8 uL; Mean Corpuscular Hemoglobin 31.8 pg (28.0-32.0); Nucleated Red Blood Cells % 0.1 %; Red Cell Distribution Width 17.5 % (11.8-14.3)
[2017-05-03 04:18] LABS: Eosinophils % (auto) 2.4 % (0.0-7.0); Hematocrit 25.1 % (41.0-53.0); Lymphocytes % (auto) 7.5 % (10.0-50.0); Mean Corpuscular Volume 96.3 fL (80.0-100.0); Mean Platelet Volume 8.3 fL (6.9-10.8); Monocytes # (auto) 0.7 uL; Monocytes % (auto) 2.8 % (0.0-12.0); Neutrophils # (auto) 21.4 uL; Platelet Count (auto) 220 10^3/uL (140-450); White Blood Cell 24.6 10^3/uL (4.4-10.8)
[2017-05-03 04:30] LABS: Albumin 0.8 g/dL (3.4-5.0); Alkaline Phosphatase 92 U/L (45-117); Anion Gap 13 (5-15); Aspartate Aminotransferase 21 U/L (15-37); BUN/Creatinine Ratio 15.3; Blood Urea Nitrogen 57 mg/dL (7-18); Calcium 6.9 mg/dL (8.5-10.1); Carbon Dioxide 22 mmol/L (21-32); Chloride 105 mmol/L (98-107); GFR African American 20 mL/min; GFR Non-African American 16 mL/min; Glucose 87 mg/dL (74-106); Magnesium 2.1 mg/dL (1.6-2.6); Phosphorus 3.3 mg/dL (2.5-4.90); Potassium 4.2 mmol/L (3.5-5.1); Sodium 140 mmol/L (136-145); Total Protein 4.6 g/dL (6.4-8.2)
[2017-05-03] MEDS: ACCU-CHEK COMFORT CURVE STRIP VI SCH ×4 (05:45→17:46)
[2017-05-03] MEDS: InsuLIN REG 1unit/0.01ml Soln (100units/ml) SC SCH ×4 (05:45→17:47)
[2017-05-03 07:28] LABS: Allen Test Modified; Base Excess -5.4 mmol/L (-2.0-2.0); Blood 02Sat 92.2 % (96-100); Blood COHb 0.6 % (0.5-1.5); Blood MetHb 0.3 % (0.0-1.5); HCO3 21.6 mmol/L (22-26.0); HHb 7.7 % (0.0-5.0); MODE VENT - A/C; O2Hb 91.4 % (94.0-97.0); PCO2 49.9 mmHg (35.0-45.0); PCO2(T) 49.9 mmHg (35.0-45.0); PO2 69.6 mmHg (80.0-100.0); PO2(T) 69.6 mmHg (80.0-100.0); Sample Type Arterial; pH 7.255 (7.350-7.450)
[2017-05-03] MEDS: SODIUM CHLOR 0.9% PF (SALINE LOCK) 10ML VIAL IV SCH ×2 (10:46→22:38)
[2017-05-03] MEDS: PANTOPRAZOLE 40 MG/10 ML VIAL IV SCH ×2 (10:46→22:37)
[2017-05-03] MEDS: FLUCONAZOLE 200MG/100ML 100 ML IV SCH (10:46)
[2017-05-03] MEDS: LINEZOLID 600MG/300ML 300 ML IV SCH ×2 (11:53→22:37)
[2017-05-03] MEDS: fentaNYL Drip 2500mCg/250mlNS 250 ML IV SCH (16:29)
[2017-05-03] MEDS ORDERED: POTASSIUM ACETATE IV NR ×10 (20:00)
[2017-05-03] MEDS ORDERED: FAT EMULSION IV NR ×10 (20:00)
[2017-05-03] MEDS ORDERED: POTASSIUM PHOSPHATE IV NR ×10 (20:00)
[2017-05-03] MEDS ORDERED: [UNRECOGNIZED DRUG - OTHER] IV NR ×10 (20:00)
[2017-05-04] VITALS (104 sets, daily range): BP systolic 77–132; BP diastolic 27–84
[2017-05-04] MEDS: NOREPINEPHRINE 8 MG/250ML KIT 250 ML IV SCH (01:19)
[2017-05-04] MEDS: fentaNYL Drip 2500mCg/250mlNS 250 ML IV SCH (01:57)
[2017-05-04 03:56] LABS: Basophils # (auto) 0 uL; Eosinophils # (auto) 0.8 uL; Hemoglobin 7.9 g/dL (13.5-17.5); Lymphocytes # (auto) 1.6 uL; Mean Platelet Volume 8.1 fL (6.9-10.8); Monocytes # (auto) 0.7 uL; Neutrophils % (auto) 87.3 % (37.0-80.0)
[2017-05-04 04:00] LABS: Basophils % (auto) 0.2 % (0.0-2.0); Eosinophils % (auto) 3.3 % (0.0-7.0); Hematocrit 24.1 % (41.0-53.0); Lymphocytes % (auto) 6.5 % (10.0-50.0); Mean Corpuscular Hemoglobin 31.7 pg (28.0-32.0); Mean Corpuscular Hgb Conc. 32.9 g/dL (32.0-36.0); Mean Corpuscular Volume 96.2 fL (80.0-100.0); Monocytes % (auto) 2.7 % (0.0-12.0); Neutrophils # (auto) 21.7 uL; Platelet Count (auto) 202 10^3/uL (140-450); Red Cell Distribution Width 17.3 % (11.8-14.3); White Blood Cell 24.9 10^3/uL (4.4-10.8)
[2017-05-04 04:31] LABS: BUN/Creatinine Ratio 14.6; Calcium 6.9 mg/dL (8.5-10.1); Potassium 4.6 mmol/L (3.5-5.1)
[2017-05-04] MEDS: PIPERACILLIN-TAZOB 2.25GM 50 ML IV SCH ×3 (06:10→22:59)
[2017-05-04] MEDS: ACCU-CHEK COMFORT CURVE STRIP VI SCH ×4 (06:11→18:00)
[2017-05-04] MEDS: InsuLIN REG 1unit/0.01ml Soln (100units/ml) SC SCH ×4 (06:11→18:00)
[2017-05-04 07:43] LABS: Allen Test Modified; Blood 02Sat 93.2 % (96-100); Blood COHb 0.6 % (0.5-1.5); Blood MetHb 0.4 % (0.0-1.5); HCO3 20.5 mmol/L (22-26.0); HHb 6.7 % (0.0-5.0); MODE VENT - A/C; O2Hb 92.3 % (94.0-97.0); PCO2 51.1 mmHg (35.0-45.0); PCO2(T) 51.1 mmHg (35.0-45.0); PO2 71.6 mmHg (80.0-100.0); PO2(T) 71.6 mmHg (80.0-100.0); Sample Type Arterial; pH 7.221 (7.350-7.450)
[2017-05-04 09:39] LABS: Albumin 0.7 g/dL (3.4-5.0); Magnesium 1.9 mg/dL (1.6-2.6); Phosphorus 4.3 mg/dL (2.5-4.90)
[2017-05-04] MEDS: PANTOPRAZOLE 40 MG/10 ML VIAL IV SCH ×2 (09:54→22:59)
[2017-05-04] MEDS: SODIUM CHLOR 0.9% PF (SALINE LOCK) 10ML VIAL IV SCH ×2 (09:55→22:59)
[2017-05-04] MEDS: FLUCONAZOLE 200MG/100ML 100 ML IV SCH (09:55)
[2017-05-04] MEDS: LINEZOLID 600MG/300ML 300 ML IV SCH ×2 (11:31→22:59)
[2017-05-04] MEDS: MIDAZOLAM DRIP 50 mg/50mL 50 ML IV SCH (11:31)
[2017-05-04] MEDS ORDERED: SODIUM ACETATE IV NR ×11 (20:00)
[2017-05-04] MEDS ORDERED: FAT EMULSION IV NR ×11 (20:00)
[2017-05-04] MEDS ORDERED: [UNRECOGNIZED DRUG - OTHER] IV NR ×11 (20:00)
[2017-05-04] MEDS ORDERED: SODIUM CHLORIDE IV NR ×11 (20:00)
[2017-05-05] VITALS (85 sets, daily range): BP systolic 94–136; BP diastolic 21–63
[2017-05-05 04:07] LABS: Basophils # (auto) 0.1 uL; Basophils % (auto) 0.3 % (0.0-2.0); Hemoglobin 7.8 g/dL (13.5-17.5); Monocytes # (auto) 0.6 uL; Monocytes % (auto) 2.8 % (0.0-12.0)
[2017-05-05 04:10] LABS: Eosinophils # (auto) 0.8 uL; Eosinophils % (auto) 3.3 % (0.0-7.0); Hematocrit 23.5 % (41.0-53.0); Lymphocytes # (auto) 1.1 uL; Lymphocytes % (auto) 4.6 % (10.0-50.0); Mean Corpuscular Hemoglobin 31.7 pg (28.0-32.0); Mean Corpuscular Hgb Conc. 33.1 g/dL (32.0-36.0); Mean Corpuscular Volume 95.7 fL (80.0-100.0); Mean Platelet Volume 8.2 fL (6.9-10.8); Neutrophils # (auto) 20.5 uL; Nucleated Red Blood Cells % 0.1 %; Platelet Count (auto) 187 10^3/uL (140-450); Red Cell Distribution Width 16.6 % (11.8-14.3); White Blood Cell 23.1 10^3/uL (4.4-10.8)
[2017-05-05 04:36] LABS: Albumin 0.7 g/dL (3.4-5.0); Alkaline Phosphatase 158 U/L (45-117); Anion Gap 14 (5-15); Aspartate Aminotransferase 22 U/L (15-37); BUN/Creatinine Ratio 15.6; Bilirubin, Total 1.1 mg/dL (0.2-1.0); Blood Urea Nitrogen 68 mg/dL (7-18); Calcium 6.9 mg/dL (8.5-10.1); Carbon Dioxide 19 mmol/L (21-32); Chloride 99 mmol/L (98-107); GFR African American 17 mL/min; GFR Non-African American 14 mL/min; Glucose 159 mg/dL (74-106); Phosphorus 4.9 mg/dL (2.5-4.90); Potassium 4.7 mmol/L (3.5-5.1); Sodium 132 mmol/L (136-145); Total Protein 4.6 g/dL (6.4-8.2)
[2017-05-05] MEDS: ACCU-CHEK COMFORT CURVE STRIP VI SCH ×4 (05:54→17:51)
[2017-05-05] MEDS: InsuLIN REG 1unit/0.01ml Soln (100units/ml) SC SCH ×4 (05:54→17:51)
[2017-05-05] MEDS: PIPERACILLIN-TAZOB 2.25GM 50 ML IV SCH ×3 (05:56→22:20)
[2017-05-05 07:37] LABS: Allen Test Modified; Base Excess -9.8 mmol/L (-2.0-2.0); Blood 02Sat 88.8 % (96-100); Blood COHb 0.6 % (0.5-1.5); Blood MetHb 0.2 % (0.0-1.5); HCO3 17.4 mmol/L (22-26.0); HHb 11.1 % (0.0-5.0); MODE VENT - A/C; O2Hb 88.1 % (94.0-97.0); PCO2 43.5 mmHg (35.0-45.0); PCO2(T) 43.5 mmHg (35.0-45.0); PIP 32; PO2 59.2 mmHg (80.0-100.0); PO2(T) 59.2 mmHg (80.0-100.0); Sample Type Arterial; pH 7.221 (7.350-7.450)
[2017-05-05] MEDS: NOREPINEPHRINE 8 MG/250ML KIT 250 ML IV SCH (09:24)
[2017-05-05] MEDS ORDERED: Diabetisource AC 1 Liter GT SCH (09:45)
[2017-05-05] MEDS: FLUCONAZOLE 200MG/100ML 100 ML IV SCH (10:16)
[2017-05-05] MEDS: SODIUM CHLOR 0.9% PF (SALINE LOCK) 10ML VIAL IV SCH ×2 (10:16→21:56)
[2017-05-05] MEDS: PANTOPRAZOLE 40 MG/10 ML VIAL IV SCH ×2 (10:16→21:55)
[2017-05-05] MEDS: LINEZOLID 600MG/300ML 300 ML IV SCH ×2 (11:28→21:56)
[2017-05-05] MEDS: FUROSEMIDE 40 MG/4 ML VIAL IV SCH ×2 (11:40→20:46)
[2017-05-05] MEDS: MIDAZOLAM DRIP 50 mg/50mL 50 ML IV SCH (11:49)
[2017-05-05] MEDS ORDERED: SODIUM CHLORIDE IV NR ×10 (20:00)
[2017-05-05] MEDS ORDERED: [UNRECOGNIZED DRUG - OTHER] IV NR ×10 (20:00)
[2017-05-05] MEDS ORDERED: FAT EMULSION IV NR ×10 (20:00)
[2017-05-05] MEDS ORDERED: SODIUM ACETATE IV NR ×10 (20:00)
[2017-05-05] MEDS: fentaNYL Drip 2500mCg/250mlNS 250 ML IV SCH (22:21)
[2017-05-06] VITALS (13 sets, daily range): BP systolic 102–121; BP diastolic 41–52
[2017-05-06] MEDS: ACCU-CHEK COMFORT CURVE STRIP VI SCH ×2 (00:13→06:12)
[2017-05-06] MEDS: InsuLIN REG 1unit/0.01ml Soln (100units/ml) SC SCH ×2 (00:13→06:00)
[2017-05-06] MEDS: NOREPINEPHRINE 8 MG/250ML KIT 250 ML IV SCH (00:39)
[2017-05-06 04:01] LABS: Basophils # (auto) 0.1 uL; Eosinophils # (auto) 0.6 uL; Hemoglobin 7.8 g/dL (13.5-17.5)
[2017-05-06 04:04] LABS: Basophils % (auto) 0.5 % (0.0-2.0); Eosinophils % (auto) 2.6 % (0.0-7.0); Hematocrit 24.2 % (41.0-53.0); Lymphocytes # (auto) 1.3 uL; Lymphocytes % (auto) 5.1 % (10.0-50.0); Mean Corpuscular Hemoglobin 31.5 pg (28.0-32.0); Mean Corpuscular Hgb Conc. 32.4 g/dL (32.0-36.0); Mean Corpuscular Volume 97.2 fL (80.0-100.0); Mean Platelet Volume 8.4 fL (6.9-10.8); Monocytes # (auto) 0.7 uL; Monocytes % (auto) 2.9 % (0.0-12.0); Neutrophils # (auto) 21.7 uL; Neutrophils % (auto) 88.9 % (37.0-80.0); Platelet Count (auto) 184 10^3/uL (140-450); Red Cell Distribution Width 17.3 % (11.8-14.3); White Blood Cell 24.4 10^3/uL (4.4-10.8)
[2017-05-06 04:37] LABS: Albumin 0.7 g/dL (3.4-5.0); Alkaline Phosphatase 171 U/L (45-117); Anion Gap 16 (5-15); Aspartate Aminotransferase 19 U/L (15-37); Bilirubin, Total 0.9 mg/dL (0.2-1.0); Blood Urea Nitrogen 76 mg/dL (7-18); Calcium 7.1 mg/dL (8.5-10.1); Carbon Dioxide 19 mmol/L (21-32); Chloride 90 mmol/L (98-107); GFR African American 15 mL/min; GFR Non-African American 13 mL/min; Glucose 289 mg/dL (74-106); Magnesium 2.2 mg/dL (1.6-2.6); Phosphorus 5.9 mg/dL (2.5-4.90); Potassium 4.8 mmol/L (3.5-5.1); Sodium 125 mmol/L (136-145); Total Protein 4.8 g/dL (6.4-8.2)
[2017-05-06] MEDS: FUROSEMIDE 40 MG/4 ML VIAL IV SCH (06:00)
[2017-05-06] MEDS: PIPERACILLIN-TAZOB 2.25GM 50 ML IV SCH (06:00)
[2017-05-06] MEDS ORDERED: LORazepam 2MG/ML-1ML VIAL IV PRN (08:30)
[2017-05-06] MEDS: MORPHINE SULF INJ 2 MG/ML SYRINGE 1ML IV PRN ×2 (09:07→11:11)
[2017-05-06] MEDS: FLUCONAZOLE 200MG/100ML 100 ML IV SCH (10:00)
[2017-05-06] MEDS: SODIUM CHLOR 0.9% PF (SALINE LOCK) 10ML VIAL IV SCH (10:00)
[2017-05-06] MEDS: PANTOPRAZOLE 40 MG/10 ML VIAL IV SCH (10:00)
[2017-05-06] MEDS: LINEZOLID 600MG/300ML 300 ML IV SCH (10:00)
[2017-05-06] MEDS ORDERED: TPN PER PHARMACY IV NR ×10 (20:00)
[2017-05-06] MEDS ORDERED: SODIUM CHLOR 0.9% PF (SALINE LOCK) 10ML VIAL IV SCH (22:00)
== END 2017-05-06 11:36 | disposition expired | DRG 870 ==
LOC: ER 13:40 → TELE 13:41 → TELE-WESTW 04-24 20:19 → DOU IN ICU 04-27 23:48 → EAST 04-28 02:35 → ICU CENTRL 04-28 03:08 → DOU IN ICU 04-28 03:12 → ICU WEST 04-30 15:10
PROVIDERS: ADMIT Nurse Practitioner; ATTEND Internal Medicine
PROC: 30233N1 Transfusion of Nonautologous Red Blood Cells into Peripheral Vein, Percutaneous Approach (ICD-10-PCS; 2017-04-24)
PROC: 0DJ08ZZ Inspection of Upper Intestinal Tract, Via Natural or Artificial Opening Endoscopic (ICD-10-PCS; 2017-04-26)
PROC: 5A09457 Assistance with Respiratory Ventilation, 24-96 Consecutive Hours, Continuous Positive Airway Pressure (ICD-10-PCS; 2017-04-27)
PROC: 02HV33Z Insertion of Infusion Device into Superior Vena Cava, Percutaneous Approach (ICD-10-PCS; 2017-04-27)
PROC: 5A1955Z Respiratory Ventilation, Greater than 96 Consecutive Hours (ICD-10-PCS; principal; 2017-05-01)
PROC: 0BH17EZ Insertion of Endotracheal Airway into Trachea, Via Natural or Artificial Opening (ICD-10-PCS; 2017-05-01)
DX: A41.9 Sepsis, unspecified organism (principal); J96.01 Acute respiratory failure with hypoxia; N17.0 Acute kidney failure with tubular necrosis; J86.9 Pyothorax without fistula; E43 Unspecified severe protein-calorie malnutrition; R65.21 Severe sepsis with septic shock; J90 Pleural effusion, not elsewhere classified; J18.1 Lobar pneumonia, unspecified organism; K25.4 Chronic or unspecified gastric ulcer with hemorrhage; K85.90 Acute pancreatitis without necrosis or infection, unspecified; D62 Acute posthemorrhagic anemia; E87.0 Hyperosmolality and hypernatremia; J98.11 Atelectasis; Z68.1 Body mass index [BMI] 19.9 or less, adult; K29.80 Duodenitis without bleeding; E83.51 Hypocalcemia; D63.8 Anemia in other chronic diseases classified elsewhere; E78.00 Pure hypercholesterolemia, unspecified; E87.6 Hypokalemia; G20 Parkinson's disease; I10 Essential (primary) hypertension; I25.10 Atherosclerotic heart disease of native coronary artery without angina pectoris; E11.9 Type 2 diabetes mellitus without complications; N28.1 Cyst of kidney, acquired; Z82.49 Family history of ischemic heart disease and other diseases of the circulatory system
CPT/HCPCS: 36415; 36430; 36569; 36600; 51702; 71010; 71250; 74176; 80048; 80053; 80076; 80202; 81001; 82040; 82805; 82962; 83605; 83690; 83735; 84075; 84100; 84132; 84443; 84450; 84478; 84484; 85007; 85014; 85018; 85025; 85027; 85610; 85652; 85730; 86850; 86900; 86901; 86920; 87040; 87045; 87070; 87081; 87205; 87899; 93005; 93306; 93971; 94002; 94003; 94010; 94660; 94761; 96361; 96365; 96366; 96375; C9113; J0330; J1450; J1815; J2250; J2543; J3010; J7131